=== PATIENT | female | born 1975 | race Caucasian/White ===

== ENCOUNTER 2025-01-15 12:58 | Emergency (ER) | payer BC, SELFPAY ==
--- NOTE | 2025-01-15 13:01 | ED_ITS ---
HPI - URI/Sore Throat General Chief Complaint: Upper Respiratory Infection Stated Complaint: covid +,sinus pain,chest,throat Time Seen by Provider: 01/15/25 13:01 Source: patient Mode of arrival: ambulatory Limitations: no limitations History of Present Illness HPI Narrative: Bonnie is a 41-year-old male patient presenting to the clinic today with complaints COVID positive, sinus congestion, cough, chest congestion, and sore throat. She reports she tested positive for COVID on Friday. States that the sore throat has resolved but now things have kind of settled into her chest. Is concerned that she may have bronchitis or pneumonia. Is traveling to [place] tomorrow. Denies any known fever. Denies any chest pain or shortness of breath. Has been using an albuterol inhaler, Afrin, Flonase, and ibuprofen for her symptoms. Related Data Home Medications ?Medication ?Instructions ?Recorded ?Confirmed ?Last Taken ?Type No Home Medications 01/15/25 01/15/25 Unknown History Allergies Allergy/AdvReac Type Severity Reaction Status Date / Time No Known Allergies Allergy Verified 01/15/25 13:26 Review of Systems Review of Systems: Pertinent positives per HPI. Patient denies any fever, chills, rash, headache, visual changes, dizziness, shortness of breath, chest pain, palpitations, nausea, vomiting, diarrhea, constipation, abdominal pain, or any urinary issues. PMFSH Comments At the time of my signature, I reviewed and agree with the nursing past medical, surgical, social, and family history. There is no relevant family history per tinent to the patient complaint. Exam Narrative: General: Well-developed, well nourished, in no apparent distress Head: Normocephalic, atraumatic Eyes: Pupils equally round and reactive to light bilaterally, EOM intact, sclera and conjunctive clear, no discharge, lids normal Ears: TMs intact and clear, ear canals clear, no drainage, grossly hearing normal. Nose: Nares patent, clear nasal discharge, moderate inflammation, no sinus tenderness. Mouth: Oral pharynx without lesions or masses, good dentition, MMM. Postnasal drip Neck: Supple, trachea midline, no enlargement of anterior or posterior cervical nodes, no thyroid masses or goiter palpable. Cardio: Regular rate and rhythm, s1 and s2 normal, no murmur appreciated. Resp: Clear to auscultation bilaterally, no rhonchi, rales, wheezing or rubs Course Course Emergency Course: Portions of this record may have been created with voice recognition software. Level of Care: Express Care Visit Vital Signs Vital signs: Vital Signs Temperature 36.1 C L 01/15/25 13:21 Pulse Rate 92 01/15/25 13:21 Respiratory Rate 18 01/15/25 13:21 Blood Pressure 145/73 H 01/15/25 13:21 Pulse Oximetry 99 01/15/25 13:21 Oxygen Delivery Room Air 01/15/25 13:21 Temperature 36.1 C L 01/15/25 13:21 Pulse Rate 92 01/15/25 13:21 Respiratory Rate 18 01/15/25 13:21 Blood Pressure 145/73 H 01/15/25 13:21 Pulse Oximetry 99 01/15/25 13:21 Oxygen Delivery Room Air 01/15/25 13:21 Vital signs reviewed MDM - URI/Sore Throat MDM Narrative Medical decision making narrative: At the time of visit patient is resting comfortably on the exam table. Patient appears to be nontoxic. Plan: I suspect patient has COVID-19. Lung sounds are clear in the clinic today. Vital signs are stable. No sign of bacterial infection in the clinic today. Supportive measures were discussed with the patient and they voiced understanding discharge instructions and agrees to treatment plan. Return precautions reviewed Differential Diagnosis Differential diagnosis: Likely upper respiratory infection, otitis media, sinusitis, viral infection, bronchitis, influenza, pharyngitis and other (COVID) Discharge Plan Discharge Clinical Impression: COVID-19 Patient Disposition: Home Condition: Stable Instructions: Antibiotic Form, How to Recover from COVID-19 at Home (ED) Additional Instructions: Increase fluids and stay well hydrated May take Mucinex as needed for cough Tylenol/motrin for pain/fever Flonase and OTC antihistamines as directed Vicks vapor rub to open sinuses Sinus rinses for congestion Cepacol spray, cough drops, throat lozenges, warm tea with honey/lemon, gargle salt water to soothe throat BRAT diet for diarrhea Clear liquids x 24 hours then advance as tolerated for nausea/vomiting Go to the ED if you develop a worsening in your condition- high fever not controlled by Tylenol or Motrin, dehydration, weakness, lethargy, shortness of breath, or chest pain. Follow up with your PCP in 3-5 days if symptoms persist. Patient Language: Icelandic Prescriptions: No Action No Home Medications Follow-up/Referrals: PHYSICIAN,LANCE CREWMEMBER/MLRS SERGEANT [Primary Care Provider] - Time of Disposition: 13:35 Quality NIHSS Nursing Documentation ED NIHSS nursing documentation: reviewed/agree
[2025-01-15 13:21] VITALS: BP 145/73; PULSE 92; RESP 18; TEMP 36.1; O2SAT 99
== END 2025-01-15 13:39 | disposition home or self-care (01) ==
PROVIDERS: Emergency Provider Nurse Practitioner Family; Referring Provider Emergency Medicine
DX: U07.1 COVID-19 (principal)
CPT/HCPCS: 99202; G0463